=== PATIENT | male | born 1940 | race Caucasian/White ===

== ENCOUNTER 2018-05-19 18:39 | Emergency (ER) | payer MEDICARE, BC ==
[2018-05-19] MEDS ORDERED: NS 0.9% 1000 ML* 1,000 ML IV ONE ×2 (19:59→22:18)
[2018-05-19 21:45] LABS: ABS Basophils 0 10^3/ul (0-0.2); ABS Eosinophils 0.1 10^3/ul (0-0.6); ABS Lymphocytes 1.4 10^3/ul (1.0-4.8); ABS Monocytes 1.4 10^3/ul (0-0.8); ABS Neutrophils 6.6 10^3/ul (1.5-7.7); ABS Nucleated RBC 0 10^3/ul; Eosinophil % 1.2 % (0-6); Hematocrit 39 % (42-52); Hemoglobin 13.3 g/dl (14.0-18.0); Lymphocyte % 14.5 % (25-47); Mean Corpuscular HGB Conc 35 g/dl (31-36); Mean Corpuscular Hemoglobin 32 pg (27-31); Mean Corpuscular Volume 91 fL (80-94); Mean Platelet Volume 7.1 um3 (7.4-10.4); Nucleated Red Blood Cells % 0; Platelet Count 298 10^3/ul (150-450); Red Blood Count 4.23 10^6/ul (4.00-5.40); Red Cell Distribution Width 13 % (10.5-15); White Blood Count 9.5 10^3/ul (3.5-10.8)
[2018-05-19 21:55] LABS: INR 1.12 (0.77-1.02)
[2018-05-19 22:04] LABS: EGFR Non-African American 37.7 (>60)
[2018-05-19] MEDS ORDERED: Iodixanol* (CONTRAST) 320 MG/ML 100 ML SDV IV ONE (22:21)
--- NOTE | 2018-05-20 03:05 | ED ---
Josefina Woody Jade, scribed for Roel Brower on 05/19/18 at 2012 . GI/ HPI - HPI Summary HPI Summary: Pt is a 77 y/o male who presents to the ED c/o black stool. He states 9 days ago he began to have abdominal pain and constipation. Pt took Peptobismola and Tums for his symptoms, which did not help. He then started to take Dulcolax 4 days ago which relieved the constipation. Pt now c/o black stool, and intermittent lower abdominal pain rated a 5/10 in severity. He denies any vomiting or red blood in his stool. Pt denies any alcohol use, or taking ASA. He also states he hasnt seen a PCP since 2008 when his . - History of Current Complaint Chief Complaint: EDGIBleed Time Seen by Provider: 05/19/18 19:49 Stated Complaint: BLACK STOOL Hx Obtained From: Patient Onset/Duration: Started Days Ago - 9, Still Present Timing: Constant Current Severity: Moderate Pain Intensity: 5 Location of Pain: LLQ Pain Characteristics: Aching Associated Signs and Symptoms: Positive: Constipation, Black Tarry Stool, Abdominal Pain. Negative: Nausea, Vomiting, Blood-Streaked Stool, Bright Red Blood w/Stool, Blood w/Stool Aggravating Factor(s): Nothing Alleviating Factor(s): Nothing - Allergy/Home Medications Allergies/Adverse Reactions: Allergies Allergy/AdvReac Type Severity Reaction Status Date / Time No Known Allergies Allergy Verified 05/19/18 20:16 Home Medications: Home Medications NK [No Home Medications Reported] 05/19/18 [History Confirmed 05/19/18] PMH/Surg Hx/FS Hx/Imm Hx Endocrine/Hematology History: Denies: Hx Diabetes Cardiovascular History: Denies: Hx Hypertension Infectious Disease History: No Infectious Disease History: Denies: Traveled Outside the [place] in Last 30 Days - Family History Known Family History: Positive: Diabetes Negative: Cardiac Disease - Social History Alcohol Use: None Hx Substance Use: No Substance Use Type: Reports: None Hx Tobacco Use: No Smoking Status (MU): Never Smoked Tobacco Review of Systems Negative: Chills Gastrointestinal: Other - NEGATIVE: red blood in stool Positive: Abdominal Pain, Other - Constipation, black stool. Negative: Vomiting , Nausea All Other Systems Reviewed And Are Negative: Yes Physical Exam - Summary Physical Exam Summary: Appearance: Well appearing, no pain distress Skin: warm, dry, reflects adequate perfusion Head/face: normal Eyes: EOMI, ILEANA ENT: normal Neck: supple, non-tender Respiratory: CTA, breath sounds present Cardiovascular: RRR, pulses symmetrical Abdomen:mild tenderness of LLQ Bowel: present Musculoskeletal: normal, strength/ROM intact Neuro: normal, sensory motor intact, A&Ox3 Triage Information Reviewed: Yes Vital Signs On Initial Exam: Initial Vitals Temp Pulse Resp BP Pulse Ox 97.8 F 85 16 143/85 99 05/19/18 18:44 05/19/18 18:44 05/19/18 18:44 05/19/18 18:44 05/19/18 18:44 Vital Signs Reviewed: Yes Diagnostics - Vital Signs Vital Signs Temp Pulse Resp BP Pulse Ox 05/19/18 18:44 97.8 F 85 16 143/85 99 - Laboratory Lab Results: Lab Results 05/19/18 05/19/18 05/19/18 Range/Units 21:37 21:37 21:37 WBC 9.5 (3.5-10.8) 10^3/ul RBC 4.23 (4.00-5.40) 10^6/ul Hgb 13.3 L (14.0-18.0) g/dl Hct 39 L (42-52) % MCV 91 (80-94) fL MCH 32 H (27-31) pg MCHC 35 (31-36) g/dl RDW 13 (10.5-15) % Plt Count 298 (150-450) 10^3/ul MPV 7.1 L (7.4-10.4) um3 Neut % (Auto) 69.1 (38-83) % Lymph % (Auto) 14.5 L (25-47) % [place] % (Auto) 14.8 H (0-7) % Eos % (Auto) 1.2 (0-6) % Baso % (Auto) 0.4 (0-2) % Absolute Neuts (auto) 6.6 (1.5-7.7) 10^3/ul Absolute Lymphs (auto) 1.4 (1.0-4.8) 10^3/ul Absolute Monos (auto) 1.4 H (0-0.8) 10^3/ul Absolute Eos (auto) 0.1 (0-0.6) 10^3/ul Absolute Basos (auto) 0 (0-0.2) 10^3/ul Absolute Nucleated RBC 0 10^3/ul Nucleated RBC % 0 INR (Anticoag Therapy) 1.12 H (0.77-1.02) APTT 27.0 (26.0-36.3) seconds Sodium 134 L (135-145) mmol/L Potassium 4.5 (3.5-5.0) mmol/L Chloride 99 L (101-111) mmol/L Carbon Dioxide 24 (22-32) mmol/L Anion Gap 11 (2-11) mmol/L BUN 30 H (6-24) mg/dL Creatinine 1.77 H (0.67-1.17) mg/dL Est GFR ( Amer) 45.6 (>60) Est GFR (Non-Af Amer) 37.7 (>60) BUN/Creatinine Ratio 16.9 (8-20) Glucose 100 (70-100) mg/dL Calcium 8.5 L (8.6-10.3) mg/dL Total Bilirubin 0.70 (0.2-1.0) mg/dL AST 39 (13-39) U/L ALT 28 (7-52) U/L Alkaline Phosphatase 65 (34-104) U/L Troponin I 0.00 (<0.04) ng/mL Total Protein 7.6 (6.4-8.9) g/dL Albumin 3.6 (3.2-5.2) g/dL Globulin 4.0 (2-4) g/dL Albumin/Globulin Ratio 0.9 L (1-3) Lipase 30 (11.0-82.0) U/L Result Diagrams: 05/19/18 21:37 05/19/18 21:37 Lab Statement: Any lab studies that have been ordered have been reviewed, and results considered in the medical decision making process. - CT CT A/P CT Interpretation: Positive (See Comments) - 12:07 Right distal ureter and UVJ calculi versus plaque-like calcification causing acute right hydroureternephrosis. Urology consultation is recommended. 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 Surgical referral recommended. Colonic diverticula, without diverticulitis. Fatty liver. Gallstones. ED physician reviewed radiology report. CT Interpretation Completed By: Anabel MERLOS Course/Dx - Course Course Of Treatment: Pt is a 77 y/o male c/o black stool after having abdominal pain and constipation for 9 days. He took Dulcolax 4 days ago which relieved the constipation but made him have black stool, and intermittent lower abdominal pain rated a 5/10 in severity. A physical examination revealed mild LLQ tenderness. A CT A/P revealed Right distal ureter and UVJ calculi versus plaque-like calcification causing acute right hydroureternephrosis. Urology consultation is recommended. 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 Surgical referral recommended. Colonic diverticula, without diverticulitis. Fatty liver. Gallstones. Blood work obtained. Final dx are abdominal pain, hydronephrosis of right kidney, and appendiceal mass. At 12:[address] Dr. [address] was consulted, and he said to transfer the pt to [facility] for urology care. At 1:30 spoke with [facility] transfer center, still waiting to hear from the physician. At 2:09 spoke with the hospitalist at [facility], who does not want to accept pt for admission, and perhaps urology will admit. At 2:50, Dr. Morales accepts the pt for admission. Pt will be transferred and is agreeable with this plan. - Diagnoses Differential Diagnoses - Male: Diverticulitis, Gastroenteritis (Viral), Urinary Tract Infection Provider Diagnoses: Abdominal pain, Hydronephrosis of right kidney, Mass of appendix - Physician Notifications Discussed Care Of Patient With: Yuan Lane Time Discussed With Above Provider: 12:30 Instructed by Provider To: Transfer - Dr. Lane said to transfer the pt to [facility] for urology. At 1:30 spoke with [facility] transfer center, still waiting to hear from the physician. At 2:09 spoke with the hospitalist at [facility], who does not want to accept pt for admission, and perhaps urology will admit. At 2:50, Dr. Morales accepts the pt for admission. Discharge - Sign-Out/Discharge Documenting (check all that apply): Discharge/Admit/Transfer - Transfer - Discharge Plan Condition: Stable Disposition: ADMITTED TO OTHER HOSPITAL Referrals: [facility] [Outside] - Billing Disposition and Condition Condition: STABLE Disposition: Admitted to Other Hospital The documentation as recorded by the Josefina flores Jade accurately reflects the service I personally performed and the decisions made by me, Roel Brower.
[2018-05-20 03:59] VITALS: BP 151/73
--- NOTE | 2018-05-20 09:32 | RAD ---
Indication: Abdominal pain. Contrast: Administered 100.1 ml of VISAPAQUE 320 mg/ml CT of the abdomen and pelvis was performed after oral and IV contrast administration. Coronal and sagittal reconstructed images were obtained. The lung bases demonstrate no pleural fluid, nodules or masses heart demonstrates no pericardial effusion. The liver is normal in size. It is diffusely decreased in density consistent with hepatic steatosis. The gallbladder is distended. Gallstones are noted in the dependent portion of the fundus of the gallbladder. Common duct is not dilated. Pancreas demonstrates no mass or pancreatic duct dilatation. The spleen is normal in size. No adrenal masses are noted. The kidneys demonstrate delayed nephrogram of the right kidney. There is right hydronephrosis and hydroureter noted. Small tiny foci of increased density are noted distal ureter just above the ureterovesicular junction. These may represent calculi although plaque like calcification in the distal ureter is not excluded. The left kidney is unremarkable. Bilateral renal cysts are noted. There are no dilated loops of bowel are noted. Extensive diverticulosis of the sigmoid colon. At the base of the cecum there is a low density mass measuring 3.4 x 2.2 cm. No adjacent inflammatory change is noted. There is likely focal enlargement of the appendix. This may represent a mucocele or mucinous neoplasm. IMPRESSION: Right hydronephrosis with multiple hyperdense areas in the distal right ureter which may represent small multiple calculi although a plaque like calcification is not excluded. There is a well-circumscribed mass at the base of the cecum consistent with enlarged appendix such as a mucocele or mucinous neoplasm. Hepatic steatosis. Cholelithiasis. No biliary duct dilatation.
== END 2018-05-20 03:55 | disposition short-term general hospital (02) ==
LOC: ED 18:39
DX: R10.32 Left lower quadrant pain (principal)
CPT/HCPCS: 36415; 74177; 80053; 82272; 83690; 84484; 85025; 85610; 85730; 99284; Q9967

== ENCOUNTER 2019-06-01 12:23 | Emergency (ER) | payer MEDICARE, BC ==
[2019-06-01 14:40] VITALS: BP 176/89
--- NOTE | 2019-06-01 14:43 | UC ---
Abdominal Pain Male HPI - HPI Summary HPI Summary: He's had a few days of what he is cause left rib pain. This is accompanied by some urinary frequency but no dysuria. He's had no fevers or chills or back pain but points to his lower left lateral chest wall. Which he is pressing on frequently. - History of Current Complaint Chief Complaint: UCGeneralIllness Stated Complaint: BACK PAIN Time Seen by Provider: 06/01/19 12:51 Pain Intensity: 6 - Allergies/Home Medications Allergies/Adverse Reactions: Allergies Allergy/AdvReac Type Severity Reaction Status Date / Time No Known Allergies Allergy Verified 06/01/19 12:35 PMH/Surg Hx/FS Hx/Imm Hx Previously Healthy: Yes - Surgical History Surgical History: None - Family History Known Family History: Positive: Diabetes Negative: Cardiac Disease - Social History Alcohol Use: None Substance Use Type: None Smoking Status (MU): Never Smoked Tobacco Review of Systems All Other Systems Reviewed And Are Negative: Yes Constitutional: Positive: Negative Skin: Positive: Negative Respiratory: Positive: Negative Cardiovascular: Positive: Negative Gastrointestinal: Positive: Negative Genitourinary: Positive: Frequency. Negative: Dysuria, Hematuria, Urgency Is Patient Immunocompromised?: No Physical Exam - Summary Physical Exam Summary: Is nontoxic in appearance with stable vitals. Triage Information Reviewed: Yes Appearance: Well-Appearing Vital Signs: Initial Vital Signs Temp 98.6 F 06/01/19 12:30 Pulse 55 06/01/19 12:30 Resp 20 06/01/19 12:30 BP 135/93 06/01/19 12:30 Pulse Ox 89 06/01/19 12:30 Vital Signs Reviewed: Yes ENT Exam: Normal Respiratory Exam: Normal Cardiovascular Exam: Normal Abdominal Exam: Normal Abdomen Description: Positive: Nontender, No Organomegaly, Soft. Negative: CVA Tenderness (R), CVA Tenderness (L) Bowel Sounds: Positive: Present Musculoskeletal Exam: Normal, Other - Chest wall is slightly tender in the area that he's been pushing frequently. Skin Exam: Normal Diagnostics - Radiology CXR Radiology Interpretation Completed By: Radiologist Summary of Radiographic Findings: No acute process non contrast CT abd/pelvis Radiology Interpretation Completed By: Radiologist Summary of Radiographic Findings: He's got hydronephrosis with no obvious stone. Abd Pain Male Course/Dx - Course Course Of Treatment: I'm quite concerned about Mr. Shine. To my evaluation he's got left flank pain, a new onset of hydronephrosis since a previous CT scan and a UA that's equivocal with leukocyte esterase and 2+ blood. I encouraged him to go to the emergency department to have this evaluated with labs and better imaging. He does not want to take time for that right now but agreed to go as soon as he had a chance. He understands the issue. I warned him that an obstruction accompanied by an infection could be fatal. He understands this but feels fine at this time and states that he will go from begins to feel ill. I warned him that he could get very ill very fast in the context of sepsis. Again he understands but doesn't want to go to the emergency department this time. He understands that he is leaving against my advice but is competent to make that decision. - Differential Dx/Clinical Impression Provider Diagnosis: Hydronephrosis Discharge - Sign-Out/Discharge Documenting (check all that apply): Patient Departure All imaging exams completed and their final reports reviewed: Yes - Discharge Plan Condition: Stable Disposition: HOME-RECOMMEND TO ED Patient Education Materials: Hydronephrosis (ED) Referrals: No Primary Care Phys,NOPCP [Primary Care Provider] - Tao Rao MD [Medical Doctor] - - Billing Disposition and Condition Condition: STABLE Disposition: Home-Recommend to ED
== END 2019-06-01 15:00 | disposition home health service (06) ==
LOC: UCEAST 12:23
DX: N13.30 Unspecified hydronephrosis (principal)
CPT/HCPCS: 71046; 74176; 81003; 87086; 99212; G0463